=== PATIENT | male | born 1975 | race American Indian/Alaskan Native ===

== ENCOUNTER 2016-11-17 18:06 | Emergency (ER) | payer OTHER ==
[2016-11-17 19:54] VITALS: BP 150/87
[2016-11-17 20:30] LABS: CHLORIDE,CL 105 mmol/L (101-111); SODIUM,NA 139 mmol/L (135-145)
[2016-11-17] MEDS ORDERED: Iopamidol 612 MG/ML 100 ML Bottle IVPUSH ONE (20:38)
--- NOTE | 2016-11-17 20:43 | EDM.PDOC ---
ED HPI GI/ABDOMINAL - General Chief Complaint: Abdominal Pain Stated Complaint: SIDE PAIN Time Seen by Provider: 11/17/16 20:30 Source of Information: Reports: Patient History Limitations: Reports: No limitations - History of Present Illness INITIAL COMMENTS - FREE TEXT/NARRATIVE: This 41 yo male patient reports to the ED with right lower quadrant abdominal pain. The patient reports his pain started on Thursday (4 days ago). The pain has been intermittent, but gets worse when he gets up quickly. The patient reports no abnormalities with his bowel movements (last BM was at 1630). Symptom Onset Date: 11/17/16 Timing/Duration: Reports: Day(s): (4), Constant Location: RLQ Quality: Reports: ache, cramping Severity: moderate Improves with: Reports: lying down Worsens with: Reports: palpation, sitting up Associated Symptoms: Reports: denies other symptoms - Related Data Allergies/ADRs: Allergies Allergy/AdvReac Type Severity Reaction Status Date / Time No Known Allergies Allergy Verified 11/17/16 19:55 Home Meds: Home Meds Omeprazole 20 mg PO DAILY 11/17/16 [History] Past Medical History Gastrointestinal History: Reports: GERD Social & Family History - Tobacco Use Smoking Status *Q: Current Every Day Smoker Years of Tobacco use: 2 Packs/Tins Daily: 0.2 Second Hand Smoke Exposure: Yes - Recreational Drug Use Recreational Drug Use: No ED ROS GENERAL - Review of Systems Review Of Systems: ROS reveals no pertinent complaints other than HPI. ED EXAM, GI/ABD - Physical Exam Exam: See Below Exam Limited By: No limitations General Appearance: alert, WD/WN, moderate distress Eyes: bilateral: normal appearance, EOMI Ears: normal external exam, normal canal, hearing grossly normal, normal TMs Nose: normal inspection, normal mucosa, no blood Throat/Mouth: Normal inspection, Normal lips, Normal teeth, Normal gums, Normal oropharynx, Normal voice, No airway compromise Head: atraumatic, normocephalic Neck: normal inspection, supple, non-tender, full range of motion Respiratory/Chest: no respiratory distress, lungs clear, normal breath sounds, no accessory muscle use, chest non-tender Cardiovascular: normal peripheral pulses, regular rate, rhythm, no edema, no gallop, no JVD, no murmur, no rub GI/Abdominal: normal bowel sounds, soft, tenderness (RLQ), guarding, rebound ( RLQ) (Male) Exam: Deferred Rectal (Males) Exam: Deferred Back Exam: normal inspection, full range of motion, NT Extremities: normal inspection, normal range of motion, non-tender, normal capillary refill, no pedal edema Neurological: alert, oriented, CN II-XII intact, normal cognition, normal gait, normal reflexes, no motor/sensory deficits Psychiatric: normal affect, normal mood Skin Exam: Warm, Dry, Intact, Normal color, No rash Lymphatic: no adenopathy Course - Vital Signs Last Recorded V/S: Last Vital Signs Temp 36.3 C 11/17/16 19:50 Pulse 84 11/17/16 19:50 Resp 18 11/17/16 19:50 BP 150/87 H 11/17/16 19:50 Pulse Ox 96 11/17/16 19:50 - Orders/Labs/Meds Labs: Laboratory Tests 11/17/16 11/17/16 11/17/16 Range/Units 20:00 20:00 20:47 WBC 8.9 (5.0-10.0) 10^3/uL RBC 5.04 (4.6-6.2) 10^6/uL Hgb 15.5 (14.0-18.0) g/dL Hct 46.9 (40.0-54.0) % MCV 93.1 (80-100) fL MCH 30.8 (27.0-34.0) pg MCHC 33.0 (33.0-35.0) g/dL Plt Count 244 (150-450) 10^3/uL Neut % (Auto) 47.4 (42.2-75.2) % Lymph % (Auto) 43.6 (20.5-50.1) % [place] % (Auto) 5.3 (2-8) % Eos % (Auto) 3.4 H (1.0-3.0) % Baso % (Auto) 0.3 (0.0-1.0) % Sodium 139 (135-145) mmol/L Potassium 3.9 (3.6-5.0) mmol/L Chloride 105 (101-111) mmol/L Carbon Dioxide 24.0 (21.0-31.0) mmol/L Anion Gap 13.9 BUN 12 (7-18) mg/dL Creatinine 1.0 (0.6-1.3) mg/dL Est Cr Clr Drug Dosing 100.38 mL/min Estimated GFR (MDRD) > 60 BUN/Creatinine Ratio 12.00 Glucose 125 H (74-105) mg/dL Calcium 9.5 (8.4-10.2) mg/dl Total Bilirubin 0.4 (0.2-1.0) mg/dL AST 27 (10-42) IU/L ALT 38 (10-60) IU/L Alkaline Phosphatase 74 (42-121) IU/L Total Protein 7.5 (6.7-8.2) g/dl Albumin 4.1 (3.2-5.5) g/dl Globulin 3.4 Albumin/Globulin Ratio 1.21 Amylase 50 (28-100) U/L Lipase 28 (22-51) U/L Urine Color (YELLOW) Urine Appearance (CLEAR) Urine pH (5.0-9.0) Ur Specific [place] (1.005-1.030) Urine Protein (NEGATIVE) Urine Glucose (UA) (NEGATIVE) Urine Ketones (NEGATIVE) Urine Occult Blood (NEGATIVE) Urine Nitrite (NEGATIVE) Urine Bilirubin (NEGATIVE) Urine Urobilinogen (0.2-1.0) mg/dL Ur Leukocyte Esterase (NEGATIVE) Urine RBC /HPF Urine WBC (0-5/HPF) /HPF Ur Epithelial Cells /HPF Urine Opiates Screen Negative (NEGATIVE) Ur Oxycodone Screen Negative (NEGATIVE) Urine Methadone Screen Negative (NEGATIVE) Ur Barbiturates Screen Negative (NEGATIVE) U Tricyclic Antidepress Negative (NEGATIVE) Ur Phencyclidine Scrn Negative (NEGATIVE) Ur Amphetamine Screen Negative (NEGATIVE) U Methamphetamines Scrn Negative (NEGATIVE) Urine MDMA Screen Negative (NEGATIVE) U Benzodiazepines Scrn Negative (NEGATIVE) Urine Cocaine Screen Negative (NEGATIVE) U Marijuana (THC) Screen Negative (NEGATIVE) 11/17/16 Range/Units 20:47 WBC (5.0-10.0) 10^3/uL RBC (4.6-6.2) 10^6/uL Hgb (14.0-18.0) g/dL Hct (40.0-54.0) % MCV (80-100) fL MCH (27.0-34.0) pg MCHC (33.0-35.0) g/dL Plt Count (150-450) 10^3/uL Neut % (Auto) (42.2-75.2) % Lymph % (Auto) (20.5-50.1) % [place] % (Auto) (2-8) % Eos % (Auto) (1.0-3.0) % Baso % (Auto) (0.0-1.0) % Sodium (135-145) mmol/L Potassium (3.6-5.0) mmol/L Chloride (101-111) mmol/L Carbon Dioxide (21.0-31.0) mmol/L Anion Gap BUN (7-18) mg/dL Creatinine (0.6-1.3) mg/dL Est Cr Clr Drug Dosing mL/min Estimated GFR (MDRD) BUN/Creatinine Ratio Glucose (74-105) mg/dL Calcium (8.4-10.2) mg/dl Total Bilirubin (0.2-1.0) mg/dL AST (10-42) IU/L ALT (10-60) IU/L Alkaline Phosphatase (42-121) IU/L Total Protein (6.7-8.2) g/dl Albumin (3.2-5.5) g/dl Globulin Albumin/Globulin Ratio Amylase (28-100) U/L Lipase (22-51) U/L Urine Color Yellow (YELLOW) Urine Appearance Slightly cloudy (CLEAR) Urine pH 6.0 (5.0-9.0) Ur Specific [place] 1.025 (1.005-1.030) Urine Protein Negative (NEGATIVE) Urine Glucose (UA) Negative (NEGATIVE) Urine Ketones Negative (NEGATIVE) Urine Occult Blood Negative (NEGATIVE) Urine Nitrite Negative (NEGATIVE) Urine Bilirubin Negative (NEGATIVE) Urine Urobilinogen 0.2 (0.2-1.0) mg/dL Ur Leukocyte Esterase Negative (NEGATIVE) Urine RBC 0-5 /HPF Urine WBC 10-20 H (0-5/HPF) /HPF Ur Epithelial Cells Rare /HPF Urine Opiates Screen (NEGATIVE) Ur Oxycodone Screen (NEGATIVE) Urine Methadone Screen (NEGATIVE) Ur Barbiturates Screen (NEGATIVE) U Tricyclic Antidepress (NEGATIVE) Ur Phencyclidine Scrn (NEGATIVE) Ur Amphetamine Screen (NEGATIVE) U Methamphetamines Scrn (NEGATIVE) Urine MDMA Screen (NEGATIVE) U Benzodiazepines Scrn (NEGATIVE) Urine Cocaine Screen (NEGATIVE) U Marijuana (THC) Screen (NEGATIVE) Meds: Medications Discontinued Medications Generic Name Dose Route Start Last Admin Trade Name Nargis PRN Reason Stop Dose Admin Iopamidol 100 ml 11/17/16 20:38 11/17/16 21:09 Isovue-300 (61%) IVPUSH 11/17/16 20:39 100 ml ONETIME ONE Administration Departure - Departure Time of Disposition: 22:10 Disposition: Home, Self-Care 01 Condition: fair Clinical Impression: Abdominal pain Qualifiers: Abdominal location: right lower quadrant Qualified Code(s): R10.31 - Right lower quadrant pain Instructions: Abdominal Pain, Adult, [id number] Forms: ED Department Discharge Care Plan Goals: The patient was advised of the examination, lab and CT results during the visit. The patient was encouraged to increase physical activity to keep the bowels moving. If the patient has any additional symptoms or concerns, the patient should follow-up with his primary care facility or return to the emergency department.
== END 2016-11-17 22:24 | disposition home or self-care (01) ==
LOC: DL.ED 18:06
DX: R10.31 Right lower quadrant pain (principal); K21.9 Gastro-esophageal reflux disease without esophagitis; F17.210 Nicotine dependence, cigarettes, uncomplicated
CPT/HCPCS: 36415; 74160; 80053; 80305; 81001; 82150; 83690; 85025; 99284; Q9967

== ENCOUNTER → 2019-01-07 | Outpatient (CLI) | payer BC, OTHER ==
[~2019-01-07] MED LIST: Iopamidol 612 MG/ML 75 ML Bottle IVPUSH ONE
--- NOTE | 2019-01-07 16:57 | CT ---
Clinical history: 43-year-old male smoker with hemoptysis ("coughing up blood" 5-7 days), fever, chills/sweats and unintentional weight loss. Scan technique: Volume acquisition of data with chest (bony thorax, lungs and mediastinum) obtained during the intravenous administration 75 cc nonionic Isovue contrast (3 cc/s via injector) while the patient was lying supine on a Siemens multi slice scanner [place], [place]. All data archived in the PACS system for storage, reformatting axial/sagittal/coronal planes and study. Interpretation: Abnormal. 1. Two (2) discrete, irregularly marginated, peripheral pleural-based left upper lobe lung mass lesions ..... measuring 1.5 cm medially and 2.2 cm posterolaterally FAYE. 2. No other parenchymal lung nodule or mass lesion. No hilar or mediastinal lymphadenopathy. No associated malignant effusion. 3. No focal lobar pneumonia, atelectasis or collapse. 4. Normal cardiac silhouette. No pericardial effusion, alveolar edema or dependent pleural effusion. 5. Gallbladder, liver, stomach, spleen, adrenal glands and upper kidneys unremarkable. 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 Remote differential includes metastasis or granulomatous disease.
== END ==
LOC: DL.CT 13:47
PROVIDERS: ATTEND Nurse Practitioner Family
DX: R04.2 Hemoptysis (principal); C34.12 Malignant neoplasm of upper lobe, left bronchus or lung
CPT/HCPCS: 71260; Q9967

== ENCOUNTER 2020-03-04 20:33 | Emergency (ER) | payer BC, OTHER ==
[2020-03-04] MEDS ORDERED: Acetaminophen/HYDROcodone 325-10 MG Tab PO ONE (20:34)
[2020-03-04] MEDS ORDERED: Cyclobenzaprine 10 MG Tab PO ONE (20:34)
[2020-03-04 20:46] VITALS: BP 161/92; PULSE 83
--- NOTE | 2020-03-04 20:54 | EDM.PDOC ---
ED HPI GENERAL MEDICAL PROBLEM - General Chief Complaint: Head Injury Stated Complaint: HORSE HEAD BUTTED HIM. ARMS ARE HENRY. Time Seen by Provider: 03/04/20 20:50 Source of Information: Reports: Patient History Limitations: Reports: No Limitations - History of Present Illness INITIAL COMMENTS - FREE TEXT/NARRATIVE: horse head ran into his head. ? LOC landed on the ground. c/o pain forehead and back of neck. does have some tingling to both arms and hands. drove here by . no N/V. no unsteadiness. Neck Pain Score (Numeric/FACES): 5 - Related Data Allergies Allergy/AdvReac Type Severity Reaction Status Date / Time No Known Allergies Allergy Verified 03/04/20 21:07 Home Meds: Home Meds Omeprazole 20 mg PO DAILY 11/17/16 [History] Past Medical History Gastrointestinal History: Reports: GERD Social & Family History - Tobacco Use Smoking Status *Q: Light Tobacco Smoker Years of Tobacco use: 15 Packs/Tins Daily: 0.2 - Recreational Drug Use Recreational Drug Use: Yes Recreational Drug Type: Reports: Marijuana/Hashish Recreational Drug Use Frequency: Socially ED ROS GENERAL - Review of Systems Review Of Systems: Comprehensive ROS is negative, except as noted in HPI. ED EXAM, HEAD INJURY - Physical Exam Exam: See Below Exam Limited By: No Limitations General Appearance: Alert, WD/WN, Mild Distress, Other (discomfort) Head: Other (forehead contusion). No: Fabian's Sign, Raccoon Eyes Nexus Criteria: No: Posterior, Midline Cervical Tenderness, Evidence of Intoxication, Altered Level of Consciousness, Focal Neurological Deficit, Painful Distraction Injuries Eyes: Bilateral Eye: PERRL (pupils ER @ 4mm) Ears: Hearing Grossly Normal Throat/Mouth: Normal Voice, No Airway Compromise Neck: Stiff Neck, Tenderness, Tender Lateral, Other (C-collar applied) Respiratory: No Respiratory Distress Cardiovascular: Regular Rate, Rhythm GI/Abdominal Exam: Soft, Non-Tender Neurologic: No Motor/Sensory Deficits, Alert, Normal Mood/Affect, Oriented x 3 Skin: Normal Color, Warm/Dry - [place] Coma Score Best Eye Response ([place]): (4) Open Spontaneously Best Verbal Response ([place]): (5) Oriented Best Motor Response ([place]): (6) Obeys Commands [place] Total: 15 Course - Vital Signs Last Recorded V/S: Last Vital Signs Temp 36.6 C 03/04/20 20:41 Pulse 83 03/04/20 20:41 Resp 16 03/04/20 20:41 BP 161/92 H 03/04/20 20:41 Pulse Ox 96 03/04/20 20:41 - Re-Assessments/Exams Free Text/Narrative Re-Assessment/Exam: 03/04/20 21:42 results discussed with pt. hand/arm tingling somewhat better. Departure - Departure Time of Disposition: 21:43 Disposition: Home, Self-Care 01 Condition: Good Clinical Impression: Cervical strain, acute Qualifiers: Encounter type: initial encounter Qualified Code(s): S16.1XXA - Strain of muscle, fascia and tendon at neck level, initial encounter Contusion of forehead Qualifiers: Encounter type: initial encounter Qualified Code(s): S00.83XA - Contusion of other part of head, initial encounter - Discharge Information Instructions: Concussion, Adult, [id number] Forms: ED Department Discharge Additional Instructions: 1) wear neck collar for comfort next 3 to 4 days 2) see clinic for MRI SCAN of neck if not better in 48 hours or feels worse 3) return if there is nay change or concern rx given; flexeril 10mg bid to tid prn x12 vicodin 5/325mg bid prn x 6 Sepsis Event Note (ED) - Evaluation Sepsis Screening Result: No Definite Risk - Focused Exam Vital Signs: Vital Signs Temp Pulse Resp BP Pulse Ox 03/04/20 20:41 36.6 C 83 16 161/92 H 96
--- NOTE | 2020-03-04 21:23 | CT ---
PROCEDURE INFORMATION: Exam: CT Head Without Contrast Exam date and time: 03/04/2020 9:12 PM Age: 44 years old Clinical indication: Other: Hit by horse--loc, both arms numb; Additional info: Head and neck injury TECHNIQUE: Imaging protocol: Computed tomography of the head without contrast. Radiation optimization: All CT scans at this facility use at least one of these dose optimization techniques: automated exposure control; mA and/or kV adjustment per patient size (includes targeted exams where dose is matched to clinical indication); or iterative reconstruction. COMPARISON: No relevant prior studies available. FINDINGS: Brain: Normal. No hemorrhage. Unremarkable white matter. No mass effect. Ventricles: Normal. No ventriculomegaly. Bones/joints: Unremarkable. No acute fracture. Sinuses: Mucosal thickening in the right maxillary sinus. Mastoid air cells: Visualized mastoid air cells are well aerated. Soft tissues: Unremarkable. IMPRESSION: Normal brain. No intracranial hemorrhage or skull fracture.
--- NOTE | 2020-03-04 21:26 | CT ---
PROCEDURE INFORMATION: Exam: CT Cervical Spine Without Contrast Exam date and time: 03/04/2020 9:12 PM Age: 44 years old Clinical indication: Other: Hit by horse, both arms tingling; Additional info: Head and neck injury TECHNIQUE: Imaging protocol: Computed tomography images of the cervical spine without contrast. Radiation optimization: All CT scans at this facility use at least one of these dose optimization techniques: automated exposure control; mA and/or kV adjustment per patient size (includes targeted exams where dose is matched to clinical indication); or iterative reconstruction. COMPARISON: No relevant prior studies available. FINDINGS: Vertebrae: No vertebral body compression. Straightening of the spine which could be related to positional artifact or muscle spasms. Discs/Spinal canal/Neural foramina: Disc osteophyte complexes at C3-C4, C5-C6 and C6-C7. Maintained disc spaces. No neural foraminal stenosis. Mild spinal canal stenosis at C3-C4 and C6-C7. Soft tissues: Normal Lungs: Lung apices are normal. IMPRESSION: Straightening of the spine which could be related to positional artifact or muscle spasms. Degenerative changes
[2020-03-04] MEDS ORDERED: Acetaminophen/HYDROcodone 325-10 MG Tab ONE (21:43)
[2020-03-04] MEDS ORDERED: Cyclobenzaprine 10 MG Tab ONE (21:43)
== END 2020-03-04 21:51 | disposition home or self-care (01) ==
LOC: DL.ED 20:33
DX: S16.1XXA Strain of muscle, fascia and tendon at neck level, initial encounter (principal); S00.83XA Contusion of other part of head, initial encounter; K21.9 Gastro-esophageal reflux disease without esophagitis; F17.210 Nicotine dependence, cigarettes, uncomplicated; Z79.899 Other long term (current) drug therapy; W55.12XA Struck by horse, initial encounter
CPT/HCPCS: 70450; 72125; 99283; A9270